=== PATIENT | female | born 1985 | race Caucasian/White ===

== ENCOUNTER 2025-04-19 13:24 | Emergency (ER) | payer MEDICAID ==
[2025-04-19] MEDS: DexAMETHasone SOD PHOS 4 MG/1ML SDV INJ PO ONE (14:41)
--- NOTE | 2025-04-19 15:15 | ED.PDOC ---
HPI Allergic reaction HPI Comments This is a 39 year old female SUPRIYA presenting to the ED with chief complaint of allergic reaction. Patient reports that she was prescribed Amoxicillin and Ibuprofen by her dentist today for an upcoming root canal, however, 30 minutes after taking both, she begun to experience generalized urticaria, itchiness, SOB, and throat swelling. EMS relays that they had provided the patient 0.3mg of Epinephrine, 25mg of Benadryl, and a DuoNeb breathing treatment with improvement of symptoms noted. Patient denies any chest pain, LOC, dizziness, or fever. Chief Complaint: Allergic Reaction Time Seen by MD: 15:00 Reviewed Notes: Nurses Notes, Medications, Allergies Allergies: Coded Allergies: Amoxicillin (Verified Allergy, Unknown, 04/19/25) Ciprofloxacin (Verified Allergy, Unknown, 04/19/25) Ibuprofen (Verified Allergy, Unknown, 04/19/25) Morphine (Verified Allergy, Unknown, 04/19/25) Information Source: Patient Mode of Arrival: Ambulatory Severity: Moderate Rash: Moderate SOB: Moderate Difficulty swallowing: Moderate Pruritus: Moderate Timing: Hours Duration: Since onset Prehospital treatment: Breathing Tx, Oxygen, Other (0.3mg Epinephrine, 25mg Benadryl) Location: Generalized Exposed to: Medication Developed: Pruritus, Rash, Shortness of Breath, Throat Swelliing History of: Asthma Past Medical History PAST MEDICAL HISTORY: Asthma Past Medical History (Other): Autoimmune disorder, neuropathy Surgical History: Denies all surgeries DEPARTMENT CLINICIAN History: Denies all DEPARTMENT CLINICIAN Hx Family History Family History: Reviewed,noncontributory to illness Social History Smoker: Non-Smoker Alcohol: Denies ETOH Use Drugs: Denies Drug Use Lives In: Home Constitutional: denies: chills, diaphoresis, fatigue, fever, malaise, sweats, weakness, others EENTM: reports: throat swelling; denies: blurred vision, double vision, ear bleeding, ear discharge, ear drainage, ear pain, ear ringing, eye pain, eye redness, hearing loss, mouth pain, mouth swelling, nasal discharge, nose bleeding, nose congestion, nose pain, photophobia, tearing, throat pain, voice changes, others Respiratory: reports: shortness of breath; denies: cough, hemoptysis, orthopnea, SOB at rest, SOB with excertion, stridor, wheezing, others Cardiovascular: denies: chest pain, dizzy spells, diaphoresis, Dyspnea on exertion, edema, irregular heart beat, left arm pain, lightheadedness, palpitati ons, PND, syncope, others Gastrointestinal: denies: abdomen distended, abdominal pain, blood streaked bowels, constipated, diarrhea, dysphagia, difficulty swallowing, hematemesis, melena, nausea, poor appetite, poor fluid intake, rectal bleeding, rectal pain, vomiting, others Genitourinary: denies: abnormal vagina bleeding, burning, dyspareunia, dysuria, flank pain, frequency, hematuria, incontinence, pain, , vagina discharge, urgency, others Neurological: denies: dizziness, fainting, headache, left sided numbness, left sided weakness, numbness, paresthesia, pre-existing deficit, right sided numbness, right sided weakness, seizure, speech problems, tingling, tremors, weakness, others Musculoskeletal: denies: back pain, gout, joint pain, joint swelling, muscle pain, muscle stiffness, neck pain, others Integumetry: denies: bruises, change in color, change in hair/nails, dryness, laceration, lesions, lumps, rash, wounds, others Allergic/Immunocompromised: reports: Hives, Itching; denies: Difficulty Healing, Frequent Infections, others Hematologic/Lymphatic: denies: anemia, blood clots, easy bleeding, easy bruising, swollen glands, others Endocrine: denies: excessive hunger, excessive sweating, excessive thirst, excessive urination, flushing, intolerance to cold, intolerance to heat, unexplained weight gain, unexplained weight loss, others Psychiatric: denies: anxiety, bipolar disorder, depression, hopeless, panic disorder, schizophrenia, sleepless, suicidal, others All Other Systems: Reviewed and Negative Physical Exam General Appearance: No Apparent Distress, Normal HEENT: Normal ENT Inspection, Pharynx Normal, TMs Normal Neck: Full Range of Motion, Non-Tender, Normal, Normal Inspection Respiratory: Chest Non-Tender, Lungs Clear, No Accessory Muscle Use, No Respiratory Distress, Normal Breath Sounds Cardiovascular: No Edema, No JVD, No Murmur, No Gallop, Normal Peripheral Pulses, Tachycardia Breast Exam: Deferred Gastrointestinal: No Organomegaly, Non Tender, No Pulsatile Mass, Normal Bowel Sounds, Soft Genitalia: Deferred Pelvic: Deferred Rectal: Deferred Extremities: No calf tenderness, Normal capillary refill, Normal inspection, Normal range of motion, Non-tender, No pedal edema Musculoskeletal : Apperance: Normal Neurologic: Alert, local delivery truck driver II-XII nml as Tested, No Motor Deficits, Normal Affect, Normal Mood, No Sensory Deficits Cerebellar Function: Normal Reflexes: Normal Skin: Dry, Warm, Other (Mild generalized urticaria) Lymphatic: No Adenopathy Was a procedure done? Was a procedure done?: No Differential diagnosis (all) Differential Diagnosis: Anaphylaxis, Angioedema, Contact Dermatitis, Drug Reaction, Urticaria X-Ray, Labs, Meds, VS Vital Signs Date Time Temp Pulse Resp B/P (MAP) Pulse Ox O2 Delivery O2 Flow Rate FiO2 04/19/25 14:46 85 18 98 Room Air 04/19/25 14:46 97.5 85 18 111/75 (87) 98 97.5 04/19/25 13:45 99.0 101 22 123/70 (87) 97 99.0 Current Medications Medications (Trade) Dose Ordered Sig/Jeremie Route Start Time Stop Time Status Last Admin Dexamethasone Sodium Phosphate (Decadron Injection) 4 mg ONCE ONCE PO 04/19/25 14:15 04/19/25 14:16 DC 04/19/25 14:41 Time of 1ST Reevaluation: 15:58 Reevaluation 1ST: Unchanged Time of 2ND Reevaluation: 15:36 Reevaluation 2ND: Resolved Patient Education/Counseling: Diagnosis, Treatment, Prognosis, Need For Follow Up Family Education/Counseling: No Family Present Additional Information Previous visits reviewed: None The following tests were ordered, and results were reviewed by me: None Additional Information was gathered from interviewing the following independent historians: EMS I reviewed and agreed with the following test results read by other providers: None I discussed treatment and results with medical personnel and: patient Comprehensive systems review obtained and negative except for what is stated in the HPI. SEPSIS Sepsis Screen Date sepsis recognized/suspect: Apr 19, 2025 Time Sepsis recognized/suspect: 1333 Recent Procedure: No On Antibiotic Therapy: No Respiratory Rate >20: No Heart Rate >90: No Temp<36 C (96.8 F) or >38.3 C: No SBP <90 or MAP <65 mmHG: No New Acute Mental Status Change: No Is the patient on CPAP, BIPAP,: No Vital Signs Date Time Temp Pulse Resp B/P (MAP) Pulse Ox O2 Delivery O2 Flow Rate FiO2 04/19/25 14:46 85 18 98 Room Air 04/19/25 14:46 97.5 85 18 111/75 (87) 98 97.5 04/19/25 13:45 99.0 101 22 123/70 (87) 97 99.0 Medications Medications Dose Ordered Sig/Jeremie Route Start Time Stop Time Status Last Admin Dose Admin Dexamethasone Sodium Phosphate 4 mg ONCE ONCE PO 04/19/25 14:15 04/19/25 14:16 DC 04/19/25 14:41 Departure 1 Departure Time of Disposition: 15:36 Impression: Primary Impression: Allergic reaction Disposition: 01 HOME / SELF CARE / HOMELESS Condition: Good e-Prescriptions Diphenhydramine Hcl (Benadryl Allergy) 25 Mg Cap 25 MG PO Q6HP PRN for 2 Days, #20 CAP 0 Refills Prov: IJEOMA GRAVES MD 04/19/25 Prednisone (Prednisone) 20 Mg Tab 20 MG PO DAILY for 5 Days, #5 TAB 0 Refills Prov: IJEOMA GRAVES MD 04/19/25 Discharged With: Self Critical Care Note Critical Care Time?: No Stability Stability form required: No Heart Score Heart Score: Heart Score Response (Comments) Value History N/A 0 EKG N/A 0 Age N/A 0 Risk Factors N/A 0 Troponin N/A 0 Total 0 I personally scribed for IJEOMA GRAVES MD ([email or web address]) on 04/19/25 at 15:15. Electronically submitted by Zoran Weiss ([email or web address]). IJEOMA GRAVES MD Apr 19, 2025 15:15
[2025-04-19] MEDS ORDERED: PRED20TA2 PO (15:39)
[2025-04-19] MEDS ORDERED: DIPH25CA66 PO (15:39)
[2025-04-19 16:36] VITALS: BP 109/72; PULSE 83; RESP 20; TEMP 97.8; O2SAT 96
== END 2025-04-19 16:56 | disposition home or self-care (01) ==
LOC: EDBD 13:24 → EDUNIT# 13:24 → ER 13:24
DX: T78.49XA Other allergy, initial encounter (principal); J45.909 Unspecified asthma, uncomplicated; Z88.0 Allergy status to penicillin; Z88.1 Allergy status to other antibiotic agents; Z88.5 Allergy status to narcotic agent; Z88.6 Allergy status to analgesic agent; Z88.8 Allergy status to other drugs, medicaments and biological substances; X58.XXXA Exposure to other specified factors, initial encounter
CPT/HCPCS: J1100